=== PATIENT | female | born 1990 | race Asian ===

== ENCOUNTER → 2016-11-11 | Outpatient (CLI) | payer OTHER ==
[~2016-11-11] MED LIST: ACET50TA PO; ANUS2.5C2 TOP; DIBU10OI TOP; IBUP1TAB7 PO; PRENTAB9 PO
[2016-11-11 17:51] LABS: CONTROL LINE HCG INT CTR LINE PRESENT
[2016-11-11 18:07] LABS: BASO % 0.4 % (0.0-1.0); EOS # 0.1 10^3/uL (0.0-0.50); EOS % 1.5 % (0.0-3.0); IMMATURE GRANULOCYTE % 0.1 % (0-0); LYMPH # 3.9 10^3/uL (1.5-6.5); LYMPH % 49.4 % (24.0-44.0); MEAN CORPUSCULAR HEMOGLOBIN 29.4 pg (27.0-33.0); MEAN CORPUSCULAR HGB CONC 34.5 g/dl (32.0-36.5); MEAN CORPUSCULAR VOLUME 85.3 fl (80.0-96.0); MONO # 0.6 10^3/uL (0.0-0.8); MONO % 7.4 % (0.0-5.0); NEUTROPHILS # 3.2 10^3/uL (1.8-7.7); NEUTROPHILS % 41.2 % (36.0-66.0); PLATELET COUNT, AUTOMATED 237 10^3/uL (150-450); RED CELL DISTRIBUTION WIDTH 11.7 % (11.5-14.5); T UPTAKE 35 % (30-39); THYROXINE (T4) 10.2 UG/DL (4.5-12.0); WHITE BLOOD COUNT 7.8 10^3/uL (4.0-10.0)
[2016-11-11 18:11] LABS: LUTEINIZING HORMONE 9.1 mIU/mL
[2016-11-11 18:12] LABS: FOLLICLE STIMULATING HORMONE 5.1 mIU/mL
[2016-11-11 18:17] LABS: ADD MORPHOLOGY? NO
== END ==
LOC: M SMT 15:20
PROVIDERS: ATTEND Advanced Practice Midwife
DX: N92.6 Irregular menstruation, unspecified (principal)

== ENCOUNTER → 2017-09-08 | Outpatient (CLI) | payer OTHER ==
[2017-09-08 18:49] LABS: BASO % 0.3 % (0.0-1.0); EOS # 0.1 10^3/uL (0.0-0.50); EOS % 0.9 % (0.0-3.0); HEMATOCRIT 37.6 % (36.0-47.0); HEMOGLOBIN 12.8 g/dl (12.0-15.5); IMMATURE GRANULOCYTE % 0.4 % (0-3.0); LYMPH # 1.9 10^3/uL (1.5-6.5); LYMPH % 27.4 % (24.0-44.0); MEAN CORPUSCULAR HEMOGLOBIN 29.8 pg (27.0-33.0); MEAN CORPUSCULAR VOLUME 87.6 fl (80.0-96.0); MONO # 0.5 10^3/uL (0.0-0.8); MONO % 7.3 % (0.0-5.0); NEUTROPHILS # 4.5 10^3/uL (1.8-7.7); NEUTROPHILS % 63.7 % (36.0-66.0); PLATELET COUNT, AUTOMATED 211 10^3/uL (150-450); RED BLOOD COUNT 4.29 10^6/uL (4.00-5.40); RED CELL DISTRIBUTION WIDTH 11.9 % (11.5-14.5)
[2017-09-08 22:45] LABS: CHLAMYDIA DNA AMPLIFICATION NEGATIVE (NEGATIVE); GC DNA AMPLIFICATION NEGATIVE (NEGATIVE)
[2017-09-10 09:57] LABS: RUBELLA IgG QUALITATIVE IMMUNE (IMMUNE)
[2017-09-10 10:12] LABS: HBsAg Prenatal NEGATIVE (NEGATIVE)
[2017-09-10 10:27] LABS: HEPATITIS C VIRUS ABY INDEX 0.3 INDEX (<0.8)
[2017-09-10 10:27] LABS: HIV 1&2 SCREEN CENTAUR NEGATIVE (NEGATIVE)
== END ==
LOC: M SMT 13:48
DX: Z34.81 Encounter for supervision of other normal pregnancy, first trimester (principal); Z3A.12 12 weeks gestation of pregnancy
CPT/HCPCS: 86762

== ENCOUNTER → 2017-09-14 | Outpatient (CLI) | payer OTHER | LOC: M RAD 14:33 | DX: O44.01 Complete placenta previa NOS or without hemorrhage, first trimester (principal); Z36.89 Encounter for other specified antenatal screening; Z3A.12 12 weeks gestation of pregnancy | CPT/HCPCS: 76801 ==

== ENCOUNTER → 2017-10-21 | Outpatient (CLI) | payer OTHER | LOC: M RAD 15:28 | DX: Z34.82 Encounter for supervision of other normal pregnancy, second trimester (principal) | CPT/HCPCS: 76811 ==

== ENCOUNTER → 2017-11-04 | Outpatient (CLI) | payer OTHER | LOC: M SMT 15:26 | DX: Z36.89 Encounter for other specified antenatal screening (principal) | CPT/HCPCS: 36415 ==

== ENCOUNTER → 2017-12-02 | Outpatient (CLI) | payer OTHER ==
[2017-12-02 14:03] LABS: HEMATOCRIT 36.1 % (36.0-47.0); HEMOGLOBIN 12.4 g/dl (12.0-15.5); MEAN CORPUSCULAR HEMOGLOBIN 30.2 pg (27.0-33.0); MEAN CORPUSCULAR HGB CONC 34.3 g/dl (32.0-36.5); MEAN CORPUSCULAR VOLUME 87.8 fl (80.0-96.0); PLATELET COUNT, AUTOMATED 183 10^3/uL (150-450); RED BLOOD COUNT 4.11 10^6/uL (4.00-5.40); RED CELL DISTRIBUTION WIDTH 12.5 % (11.5-14.5)
[2017-12-02 14:27] LABS: GLUCOSE CHALLENGE TEST 1 HOUR 166 MG/DL (LESS THAN 140)
== END ==
LOC: M SMT 10:14
DX: Z36.89 Encounter for other specified antenatal screening (principal); Z3A.00 Weeks of gestation of pregnancy not specified
CPT/HCPCS: 82950

== ENCOUNTER → 2017-12-16 | Outpatient (CLI) | payer OTHER, SELFPAY ==
[2017-12-16 09:03] LABS: GLUCOSE, FASTING 82 MG/DL (LESS THAN 95)
[2017-12-16 09:55] LABS: 1 HR GLUCOSE 219 MG/DL (LESS THAN 180)
[2017-12-16 10:44] LABS: 2 HR GLUCOSE 183 MG/DL (LESS THAN 155)
[2017-12-16 11:36] LABS: 3 HR GLUCOSE 118 MG/DL (LESS THAN 140)
== END ==
LOC: M LAB 07:49
DX: Z34.83 Encounter for supervision of other normal pregnancy, third trimester (principal)
CPT/HCPCS: 82951

== ENCOUNTER → 2018-02-23 | Outpatient (REF) | payer OTHER ==
[~2018-02-23] MED LIST changes: -ACET50TA PO; +MAPA500T2 PO
== END ==
LOC: M LAB REF 17:07
PROVIDERS: ATTEND Advanced Practice Midwife
DX: Z34.83 Encounter for supervision of other normal pregnancy, third trimester (principal); Z3A.00 Weeks of gestation of pregnancy not specified

== ENCOUNTER 2018-03-22 18:49 | Inpatient (IN) | payer OTHER ==
[~2018-03-22] VITALS: Ht 162.6 cm; Wt 63.2 kg
[2018-03-22 19:10] VITALS: BP 96/64
[2018-03-22] MEDS ORDERED: LACTATED RINGER'S 1000 ML IV STA (21:26)
[2018-03-22] MEDS ORDERED: LR 1,000 ML IV SCH (21:26)
--- NOTE | 2018-03-22 21:34 | NUR ---
L&D H&P HPI: 27 year old at 39+6 weeks estimated gestation. Expected date of confinement: 03/23/18. dated by a first trimester. Presents today with complaint of painful, frequent uterine contractions and bloody show. Denies large loss of fluid. Reports regular movement. course c/b GDMA1 labs: Blood type O+, antibody screen negative, rubella immune, VDRL nonreactive , hepatitis B surface antigen negative, HIV negative, hepatitis C antibody negative, GC/CT negative, aneuploidy/maternal serum screening: negative quad screen, 1 hour glucose challenge test: 166, 3 hour glucose tolerance test: 82,219,183,118 GBS negative. Vaccinations: Tdap 01/13/18 Flu vaccine declined Radiology/OB US: no anomalies or placental abnormalities detected. Complete previa noted in second trimester found to be resolved in subsequent US assessments. History Past medical history: negative Surgical history: none Medications: PNV Allergies: NKDA [employer]ATING [employer]ER history: no t/e/d OB history: G1, 8lbs 6oz, uncomplicated Social history: no t/e/d Family history:no MR, VTE Objective Vitals: Normotensive, normal heart rate, afebrile Heart: Regular rate and rhythm. No murmurs, rubs or gallops. Lungs: Clear to auscultation bilaterally. No wheezes, crackles, rales or rhonchi. Abdomen: Uterine fundal height consistent with dates. No guarding or rebound tenderness. Extremities: No clubbing, cyanosis or edema. Normal deep tendon reflexes. Sterile vaginal exam: 5 cm, 100 %effacement, 0 station, cephalic, intact, bloody show External monitoring: heart rate category 1 Tocodynamometer: contractions occurring every 2-4min Assessment/Plan 27 year old at 39+6 weeks gestation. Diagnosis: active labor at term. Reassuring and maternal status. -Admit to labor and delivery with routine labs and orders -External monitoring and tocodynamometer -Pediatrics and anesthesia consultations as needed. -Augment labor with Pitocin as needed Dr. Matt Minor, DO, FACOG
[2018-03-22] MEDS ORDERED: OXYTOCIN DRIP 30 UNITS in APPROPRIATE DILUENT 1 EA IV SCH (21:45)
[2018-03-22 21:46] LABS: HEMATOCRIT 44.1 % (36.0-47.0); HEMOGLOBIN 15.2 g/dl (12.0-15.5); MEAN CORPUSCULAR HEMOGLOBIN 30.2 pg (27.0-33.0); MEAN CORPUSCULAR HGB CONC 34.5 g/dl (32.0-36.5); MEAN CORPUSCULAR VOLUME 87.5 fl (80.0-96.0); PLATELET COUNT, AUTOMATED 160 10^3/uL (150-450); RED BLOOD COUNT 5.04 10^6/uL (4.00-5.40); WHITE BLOOD COUNT 8.4 10^3/uL (4.0-10.0)
[2018-03-22 21:59] VITALS: BP 106/73
[2018-03-22] MEDS ORDERED: FENTANYL 2MCG/ML ROPIVACAINE 0.2% IN 0.9% NACL 100ML IVBAG As Ordered ONE (22:29)
[2018-03-22] MEDS ORDERED: ePHEDrine SULFATE 25 MG/5 ML(5MG/ML) SYRINGE IV PRN (22:32)
[2018-03-22] MEDS ORDERED: diphenhydrAMINE INJ 50MG/ML VIAL (J1200) IV PRN (22:32)
[2018-03-22] MEDS ORDERED: EPIDURAL COMMENT XX SCH (22:32)
[2018-03-22] MEDS ORDERED: NALOXONE INJ 0.4 MG/1 ML VIAL (J2310) IV PRN (22:32)
[2018-03-22] MEDS ORDERED: REFRIGERATOR IV KEYS XX PRN (22:32)
[2018-03-22] MEDS ORDERED: FENTANYL/ROPIVACAINE/NACL BAG 100 ML EPIDURAL SCH (22:32)
[2018-03-22] MEDS ORDERED: EPIDURAL/PCA KEYS XX PRN (22:32)
[2018-03-22] MEDS ORDERED: LACTATED RINGER'S 1000 ML IV PRN (22:32)
[2018-03-22] MEDS ORDERED: ONDANSETRON 4MG/2ML VIAL (J2405) IV PRN (22:32)
[2018-03-23] VITALS (20 sets, daily range): BP systolic 80–107; BP diastolic 51–64
[2018-03-23] MEDS ORDERED: OXYTOCIN DRIP 30 UNITS in APPROPRIATE DILUENT 1 EA IV SCH (02:44)
[2018-03-23] MEDS ORDERED: LR 1,000 ML IV SCH (02:44)
[2018-03-23] MEDS ORDERED: DIBUCAINE 1% OINTMENT 30GM TOP PRN (02:45)
[2018-03-23] MEDS ORDERED: MEASLES,MUMPS,RUBELLA VACCINE INJ (MMR-II) (90707) SC SCH (02:45)
[2018-03-23] MEDS ORDERED: RHOGAM 300 MCG (1500 IU) INJ (J2790) IM SCH (02:45)
[2018-03-23] MEDS ORDERED: PROMETHAZINE 25 MG TAB PO PRN (02:45)
[2018-03-23] MEDS ORDERED: DOCUSATE SODIUM 100 MG CAP PO PRN (02:45)
[2018-03-23] MEDS ORDERED: ACETAMINOPHEN 500 MG TAB PO PRN (02:45)
[2018-03-23] MEDS ORDERED: ONDANSETRON 4MG/2ML VIAL (J2405) IV PRN (02:45)
[2018-03-23] MEDS ORDERED: IBUPROFEN 800 MG TAB PO PRN (02:45)
--- NOTE | 2018-03-23 02:48 | NUR ---
Delivery note Spontaneous vaginal delivery Estimated gestational age at delivery: 40+0 weeks The active phase and second stage of labor progressed in normal fashion with epidural anesthesia. Patient received Pitocin labor augmentation. GBS negative, heart rate category 1 throughout labor. The head delivered left occiput anterior and restituted left occiput transverse. No nuchal cord was noted. The anterior shoulder delivered with gentle downward guidance and the remainder of the body delivered with ease. Cord clamping was delayed for approximately 1 minute after delivery. After doubly clamping the cord, I cut the cord. The was placed on the patient's chest for immediate bonding. data: Apgars 7 and 9. weight 3370 grams 7 pounds, 7 ounces. Time of delivery: 216. Sex:, Female The third stage of labor was actively managed with a bolus of IV Pitocin (30 units in 500 mL of normal saline). The placenta delivered completely intact with no missing cotyledons at 0219. A three-vessel cord with a central insertion was noted. After delivery of the placenta, the uterine fundus was approximately 2 cm below the umbilicus and firm. IV Pitocin was continued to maintain uterine tone. A normal, low level of uterine bleeding was noted. The cervix, vagina, vulva and perineum were inspected for lacerations. Second-degree laceration was noted. This was repaired with 3-0 Vicryl in typical fashion. Excellent hemostasis was noted. Estimated blood loss: 300 mL All sponges, needles, and instruments were accounted for per [facility] department protocol. Matt Minor D.O., F.A.C.O.G.
[2018-03-23] MEDS: PRENATAL VITAMINS CHEWABLE TABLET PO SCH (08:31)
[2018-03-24 06:00] VITALS: BP 86/52
[2018-03-24 06:14] VITALS: BP 90/53
[2018-03-24] MEDS ORDERED: IBUP-1114 PO (08:44)
[2018-03-24] MEDS ORDERED: MAPA500T2 PO (08:44)
[2018-03-24] MEDS: PRENATAL VITAMINS CHEWABLE TABLET PO SCH (09:45)
== END 2018-03-24 12:00 | disposition home or self-care (01) | DRG 560 ==
LOC: M LDO 18:49 → M LDI 21:06 → M OBS 03-23 04:53
PROVIDERS: ADMIT Obstetrics & Gynecology; ATTEND Obstetrics & Gynecology
PROC: 10E0XZZ Delivery of Products of Conception, External Approach (ICD-10-PCS; principal; 2018-03-23)
DX: O24.420 Gestational diabetes mellitus in childbirth, diet controlled (principal); Z3A.39 39 weeks gestation of pregnancy; O70.1 Second degree perineal laceration during delivery; Z37.0 Single live birth

== ENCOUNTER → 2018-05-24 | Outpatient (CLI) | payer OTHER ==
[~2018-05-24] MED LIST changes: +IBUP-1114 PO
== END ==
LOC: M LAB 07:58
PROVIDERS: ATTEND Obstetrics & Gynecology
DX: Z86.32 Personal history of gestational diabetes (principal)

== ENCOUNTER → 2018-08-26 | Outpatient (REF) | payer OTHER, SELFPAY ==
[2018-09-01 14:07] LABS: HPV HYBRID CAPTURE II Negative (Negative)
== END ==
LOC: M LAB REF 11:21
PROVIDERS: ATTEND Obstetrics & Gynecology
DX: Z12.4 Encounter for screening for malignant neoplasm of cervix (principal); R87.610 Atypical squamous cells of undetermined significance on cytologic smear of cervix (ASC-US)
CPT/HCPCS: 87624; G0123

== ENCOUNTER → 2019-10-19 | Outpatient (CLI) | payer SELFPAY | LOC: M SFHCWAGY 16:00 | PROVIDERS: ATTEND Advanced Practice Midwife | DX: Z12.4 Encounter for screening for malignant neoplasm of cervix (principal) | CPT/HCPCS: 87624; G0123 ==